=== PATIENT | male | born 1965 | race American Indian/Alaskan Native ===

== ENCOUNTER 2018-02-28 14:59 | Emergency (ER) | payer OTHER ==
--- NOTE | 2018-02-28 21:57 | Emergency Department Report ---
HPI - General Chief Complaint: Sore Throat Time Seen by Provider: 02/28/18 21:52 - HPI HPI: 52-year-old male presents to the emergency department with complaint of some abnormal sensation in the back of the throat has been going on since early today. He felt almost like there was some type of mucus or something that he had to get rid of it but he is unable to do so. He says it feels like "something hanging down in the back of my throat is really long." He has no trouble with his own secretions or with drinking but has some difficulty eating solid foods because of it. He denies any fever. He denies throat pain but says it is uncomfortable and annoying. He otherwise denies any past medical history. ED Past Medical Hx - Past Medical History Previous Medical History?: No - Surgical History Past Surgical History?: No - Social History Smoking Status: Never Smoker Substance Use Type: None - Medications Home Medications: Home Medications Medication Instructions Recorded Confirmed Last Taken Type Sulfamethoxazole/Trimethoprim 1 each PO BID #14 tablet 02/28/18 Unknown Rx [Bactrim DS TAB] ED Review of Systems ROS: Stated complaint: THROAT THIGHTNESS Other details as noted in HPI Comment: All other systems reviewed and negative Constitutional: denies: chills, fever Eyes: denies: eye pain, eye discharge, vision change ENT: other (see HPI). denies: ear pain, congestion Respiratory: denies: cough, shortness of breath, wheezing Cardiovascular: denies: chest pain, palpitations Gastrointestinal: denies: abdominal pain, nausea, diarrhea Genitourinary: denies: urgency, dysuria Musculoskeletal: denies: back pain, joint swelling, arthralgia Skin: denies: rash, lesions Neurological: denies: headache, weakness, paresthesias Physical Exam - Physical Exam Vital Signs: Vital Signs 02/28/18 15:10 Temperature 98 F Pulse Rate 72 Respiratory 16 Rate Blood Pressure 136/83 O2 Sat by Pulse 99 Oximetry Physical Exam: GENERAL: The patient is well-developed well-nourished. HENT: Normocephalic. Atraumatic. Patient has moist mucous membranes. No drooling or trismus. No tonsillar hypertrophy. The uvula has moderate hypertrophy and is slightly erythematous. There is no drooling or trismus. EYES: Extraocular motions are intact. NECK: Supple. Trachea is midline. No adenopathy palpable to the neck. CHEST/LUNGS: Clear to auscultation. There is no respiratory distress noted. HEART/CARDIOVASCULAR: Regular. There is no tachycardia. There is no murmur. ABDOMEN: There is no abdominal distention. SKIN: Skin is warm and dry. NEURO: The patient is awake, alert, and oriented. The patient is cooperative. The patient has no focal neurologic deficits. The patient has normal speech. MUSCULOSKELETAL: There is no tenderness or deformity. There is no limitation range of motion. There is no evidence of acute injury. ED Course Vital Signs 02/28/18 15:10 Temperature 98 F Pulse Rate 72 Respiratory 16 Rate Blood Pressure 136/83 O2 Sat by Pulse 99 Oximetry ED Medical Decision Making - Medical Decision Making Patient presents with some type of sensation of something stuck in the back of the throat. He has no difficulty swallowing his own secretions or any liquids. On physical examination he does not appear to have any tonsillar hypertrophy but he does have moderate uvular hypertrophy and the uvula appears to be going down and hitting the back of the tongue or the posterior pharynx. Differential includes uvulitis, angioedema, or some nonspecific uvular hypertrophy. He does not have any fever and his vital signs are stable. They say that they were told that they can do a walk-in appointment with an ear nose throat physician tomorrow, Dr. Antoine. I have written a prescription for some antibiotics in case this is early uvulitis. Sounds like their plan is to see the ENT physician before starting the antibiotics. He has been instructed to return to the emergency department immediately with any worsening of symptoms, development of fever, trouble swallowing liquids or with any acute distress. - Differential Diagnosis uvulitis, strep pharyngitis, angioedema Critical Care Time: No Critical care attestation.: If time is entered above; I have spent that time in minutes in the direct care of this critically ill patient, excluding procedure time. ED Disposition Clinical Impression: Uvular hypertrophy Disposition: DC-01 TO HOME OR SELFCARE Is pt being admited?: No Condition: Stable Instructions: Uvulitis (ED) Additional Instructions: Please follow up with an ear nose and throat physician in the next few days. Return to the emergency Department with any worsening of her symptoms, development of fever, inability to swallow, or with any acute distress. Prescriptions: Sulfamethoxazole/Trimethoprim [Bactrim DS TAB] 1 each PO BID #14 tablet Referrals: SHANNEN ANTOINE MD [Staff Physician] - [facility], [Primary Care Provider] - [facility] Time of Disposition: 21:57
[2018-02-28 22:04] VITALS: BP 130/86
== END 2018-02-28 21:57 | disposition home or self-care (01) ==
LOC: ED 14:59
DX: K13.79 Other lesions of oral mucosa (principal)
CPT/HCPCS: 99282